=== PATIENT | female | born 1965 | race Caucasian/White ===

== ENCOUNTER 2016-09-03 20:10 | Emergency (ER) | payer BC ==
[2016-09-03 19:17] LABS: BASOPHILS 0.3 %; BASOPHILS ABSOLUTE 0.03 10/3/uL (0.0-0.16); EOSINOPHILS 0.8 %; EOSINOPHILS ABSOLUTE 0.08 10/3/uL (0.0-0.53); HEMATOCRIT 33.5 % (36.0-48.0); HEMOGLOBIN 10.7 g/dL (12.0-16.0); IMMATURE GRANULOCYTES 0.6 %; IMMATURE GRANULOCYTES ABSOLUTE 0.06 10/3/uL (0.0-0.11); LYMPHOCYTES 26.8 %; MEAN CORPUS HGB CONC 31.9 g/dL (32.0-36.0); MEAN CORPUSCULAR HEMOGLOB 27.2 pg (26.0-34.0); MEAN PLATELET VOLUME 10.8 fL (9.2-13.0); MONOCYTES 8.2 %; MONOCYTES ABSOLUTE 0.82 10/3/uL (0.21-1.20); NEUTROPHILS 63.3 %; NEUTROPHILS ABSOLUTE 6.37 10/3/uL (2.02-8.40); PLATELET COUNT 339 10/3/uL (150-400); RBC DISTRIBUTION WIDTH 13.6 % (12.0-16.0); RED CELL COUNT 3.94 10/6/uL (4.0-5.6)
[2016-09-03 19:18] LABS: ER CBC TAT 0 Hrs 12 Mins; MANUAL DIFF NO %; WHITE BLOOD CELLS 10.1 10/3/uL (4.5-10.5)
[2016-09-03 19:33] LABS: ALBUMIN 3.3 G/DL (3.5-5.0); CALCIUM, SERUM 8.7 MG/DL (8.5-10.4); CHLORIDE, SERUM 101 MMOL/L (96-112); CO2 (CARBON DIOXIDE) 28 MMOL/L (24-34); CREATININE 1.02 MG/DL (0.55-1.02); GFR AFRICAN AMERICAN 74 ML/MIN (>=60); GFR NON AFRICAN AMERICAN 64 ML/MIN (>=60); GLUCOSE, SERUM 192 MG/DL (60-99); POTASSIUM, SERUM 3.5 MMOL/L (3.5-5.3); SGOT(AST) 10 U/L (5-40); SGPT(ALT) 22 U/L (5-65); SODIUM, SERUM 136 MMOL/L (135-148); TOTAL BILIRUBIN 0.4 MG/DL (0-1.2); TOTAL PROTEIN 7.3 G/DL (6.0-8.5)
[2016-09-03 19:39] LABS: A/G RATIO 0.8 (0.7-1.9); ALKALINE PHOSPHATASE 101 U/L (45-117); BUN (BLOOD UREA NITROGEN) 12 MG/DL (6-23)
[2016-09-03 19:39] LABS: ASCORBIC ACID (UR NOT ORDER) NEG (NEG); BILIRUBIN, URINE SMALL (NEG); KETONE, URINE TRACE MG/DL (NEG); LEUKOCYTE ESTERASE(NOT OR LARGE (NEG); NITRITE (URINE) NEG (NEG); WBC (NOT ORDERED) (RFLEX) 6 (0-5)
[2016-09-03 19:41] LABS: ER URINALYSIS TAT 0 Hrs 33 Mins
[~2016-09-03 20:10] MED LIST: *UNABLE1; ACET500CAP PO; ANUSOL HC SUPP1 SUPP PR; AZASAN75 MG PO; CIMZIA SC; CRESTOR PO; CRESTOR10; CRESTOR10 PO; ENTOCORT3 PO; FESO4 PO; FORTAMET500 MG PO; GLUCOPHAGE1000 MG PO; GLUCOTRO10 PO; HUMALOG SC; HUMIR1 SC; IMU PO; LANTUS SC; NEXIUM40 PO; NORCO1 TA2 PO; NOVOLOG SC; PAXIL30 MG PO; PAXIL40 MG PO; PRILO PO; PRILOSEC PO; PRILOSEC40 MG PO; PRIN10 PO; PRIN20 PO; PROTONIX PO; PROTONIX20 MG PO; PROZAC PO; PROZAC40 MG; PROZAC40 MG PO; WELLBUTRIN PO; WELLXL150 PO; ZESTRIL20 MG PO
[2016-10-13] MEDS ORDERED: LANTUS SC (16:15)
[2016-10-13] MEDS ORDERED: P20 PO (16:15)
[2016-10-13] MEDS ORDERED: HUMALOG SC (16:16)
[2016-10-13] MEDS ORDERED: GLUCPH PO (16:16)
[2016-10-13] MEDS ORDERED: PRIN20 PO (16:16)
[2016-10-13] MEDS ORDERED: PRILOSEC40 MG PO (16:17)
[2016-10-13] MEDS ORDERED: PRAVACHOL40 MG PO (16:17)
[2016-10-13] MEDS ORDERED: PAXIL40 MG PO (16:17)
[2016-10-13] MEDS ORDERED: FLUCON150 PO (16:22)
[2016-10-19] MEDS ORDERED: CANASA1SUP PR (10:44)
[2016-10-19] MEDS ORDERED: BENTYL20 PO (10:44)
[2016-11-09] MEDS ORDERED: BENTYL20 PO (00:27)
[2016-11-09] MEDS ORDERED: LANTUS SC (00:29)
[2016-11-09] MEDS ORDERED: PRIN20 PO (00:29)
[2016-11-09] MEDS ORDERED: GLUCPH PO (00:29)
[2016-11-09] MEDS ORDERED: PRAVACHOL40 MG PO (00:30)
[2016-11-09] MEDS ORDERED: PRILOSEC40 MG PO (00:30)
[2016-11-09] MEDS ORDERED: PAXIL40 MG PO (00:30)
[2016-11-09] MEDS ORDERED: P20 PO (00:31)
[2016-11-09] MEDS ORDERED: ACET500CAP PO (00:31)
[2016-11-09] MEDS ORDERED: CANASA1SUP PR (00:32)
[2016-11-11] MEDS ORDERED: P10 PO (09:55)
== END 2016-09-04 00:29 | disposition home or self-care (01) ==
LOC: ER 20:10
PROVIDERS: Emergency Medicine
DX: K29.70 Gastritis, unspecified, without bleeding (principal); T38.0X5A Adverse effect of glucocorticoids and synthetic analogues, initial encounter; K50.90 Crohn's disease, unspecified, without complications; N39.0 Urinary tract infection, site not specified; I10 Essential (primary) hypertension; K21.9 Gastro-esophageal reflux disease without esophagitis; F32.9 Major depressive disorder, single episode, unspecified; F41.9 Anxiety disorder, unspecified; E11.9 Type 2 diabetes mellitus without complications; Z87.891 Personal history of nicotine dependence; Z91.048 Other nonmedicinal substance allergy status; Z79.899 Other long term (current) drug therapy; Z79.4 Long term (current) use of insulin
CPT/HCPCS: 74022; 80053; 81001; 83690; 84703; 85025; 87086; 93005; 96374; 99285